=== PATIENT | male | born 1960 | race Caucasian/White ===

== ENCOUNTER → 2021-04-16 | Outpatient (CLI) | payer OTHER | LOC: RAD 12:45 | DX: Z13.6 Encounter for screening for cardiovascular disorders (principal); I25.10 Atherosclerotic heart disease of native coronary artery without angina pectoris; E78.00 Pure hypercholesterolemia, unspecified ==

== ENCOUNTER → 2021-05-10 | Outpatient (CLI) | payer BC ==
[~2021-05-10] VITALS: Ht 185.4 cm; Wt 110.0 kg
[2021-05-10 07:19] VITALS: BP 100/74
--- NOTE | 2021-05-10 09:23 | TEE ---
[facility] [place] [address] TRANSESOPHAGEAL ECHOCARDIOGRAM Name: YUDELKA LINDER [facility]: [id number] Admission: 05/10/21 Attend Phys: Ignacio Bernabe MD, Discharge: Date of : 58 Report #: [id number] THIS REPORT FOR: cc: NO FAMILY PHYSICIAN or PCP NO FAMILY PHYSICIAN or PCP Ignacio Bernabe MD [facility] ~ APPROVED REPORT Study performed: 05/10/2021 07:50:00 EXAM: Comprehensive 2D, Doppler, and color-flow Echocardiogram Patient Location: Out-Patient Room #: 9 Status: routine BSA: 2.35 HR: 82 bpm BP: 134/86 mmHg Rhythm: Atrial Fibrillation Other Information Study Quality: Good Indications Atrial Fibrillation Echo Enhancing Agent Indication: Rule out Shunt Agent(s) / Amount(s) Used: Agitated Saline 7 cc Procedure After obtaining informed consent, patient underwent transesophageal echo in the [employer]. Type of Sedation : Conscious Sedation Sedation was administered by Nurse. Sedation start time: 0800 Case end Time: 812 Sedation was achieved intravenously with: Versed (7mg) Fentanyl (75mcg) Transesophageal probe was inserted and advanced into esophagus without difficulty by Ignacio Bernabe MD. Echo enhancement indication: R/O Septal defect. Echo enhancement agent administered: Agitated Saline The RONALD was performed without complications. Synchronized Cardioversion acheived with 150 Joules after 1 [facility] [address] [place] [address] TRANSESOPHAGEAL ECHOCARDIOGRAM Name: YUDELKA LINDER Room #: REG CL [facility]#: [id number] Admission: 05/10/21 Attend Phys: Ignacio Bernabe, Discharge: Date of : 58 Report #: [id number] attempt(s). Rhythm following Synchronized Cardioversion: Sinus Bradycardia Throughout the procedure, the blood pressure, pulse oximetry, cardiac rhythm, and rate were monitored. The patient tolerated the procedure without adverse effects. Recovery from conscious sedation was uneventful and vital signs were stable. Left Ventricle The left ventricle is normal size. There is global hypokinesis of the left ventricle. There is normal left ventricular wall thickness. Left ventricular ejection fraction is severely decreased. LVEF is 25%. Right Ventricle The right ventricle is normal size. The right ventricular systolic function is normal. Atria Left atrium is dilated. No thrombus is visualized in the left atrium or appendage. Injection of contrast documented no interatrial shunt. Right atrium is dilated. Aortic Valve The aortic valve is normal in structure. No aortic regurgitation is present. There is no aortic valvular stenosis. Mitral Valve The mitral valve is normal in structure. Mild mitral regurgitation. No evidence of mitral valve stenosis. Tricuspid Valve The tricuspid valve is normal in structure. Mild tricuspid regurgitation. Pulmonic Valve The pulmonary valve is normal in structure. There is no pulmonic valvular regurgitation. Great Vessels The aortic root is normal in size. Pericardium There is no pericardial effusion. <Conclusion> [facility] [address] [place] [address] TRANSESOPHAGEAL ECHOCARDIOGRAM Name: YUDELKA LINDER Room #: REG CL [facility].#: [id number] Admission: 05/10/21 Attend Phys: Ignacio Bernabe, Discharge: Date of : 58 Report #: [id number] Consent was obtained Timeout performed After appropriate sedation esophageal probe was advanced without difficulty Left atrial appendage moderate size, no obvious mass or clot detected Moderate dilated left atrium Right atrium mildly dilated Left ventricle normal in size/wall thickness, global hypokinesis EF -25-30% Mild mitral valve insufficiency/central Tricuspid aortic valve, no valvular dysfunction No evidence of ASD/VSD by color flow/bubble study Aorta no calcification detected The patient was successfully cardioverted to sinus rhythm after 150 J/ biphasic mode Patient tolerated the procedure well Twelve-lead ECG pending <ELECTRONICALLY SIGNED> By: Ignacio Bernabe MD, FACC 05/10/21921 1 1 Ignacio Bernabe MD, FACC /INF
--- NOTE | 2021-05-10 10:23 | EKG ---
[place] [address] [address] [facility] [place] [address] ELECTROCARDIOGRAM REPORT Name: YUDELKA LINDER Room #: REG CLI [facility]#: [id number] Admission: 05/10/21 Attend Phys: Ignacio Bernabe MD, Discharge: Date of : 58 Report #: [id number] [facility] Test Date: 2021-05-10 Test Time: 09:02:51 Pat Name: YUDELKA LINDER Department: Room: Gender: M [employer]: FSCHWALBE : 1960 Requested By: Ignacio Bernabe Order Number: [id number] MD: Ignacio Bernabe Measurements Intervals [place] Rate: 57 P: 30 LA: 149 QRS: -19 QRSD: 91 T: 11 QT: 457 QTc: 445 Interpretive Statements Sinus rhythm Borderline left axis deviation Abnormal R-wave progression, early transition No previous ECG available for comparison Electronically Signed On 05-10-2021 10:23:41 [employer] by Ignacio Bernabe [email or web address] <ELECTRONICALLY SIGNED> By: Ignacio Bernabe MD, [facility] 05/10/21 1023 1 1 Ignacio Bernabe MD, FACC /EPI
== END | disposition home or self-care (01) ==
LOC: CATH 06:32
PROVIDERS: ATTEND Internal Medicine
DX: I48.91 Unspecified atrial fibrillation (principal); I08.1 Rheumatic disorders of both mitral and tricuspid valves; I10 Essential (primary) hypertension; E78.00 Pure hypercholesterolemia, unspecified; I25.10 Atherosclerotic heart disease of native coronary artery without angina pectoris; I42.9 Cardiomyopathy, unspecified; Z98.890 Other specified postprocedural states; Z79.899 Other long term (current) drug therapy; Z86.73 Personal history of transient ischemic attack (TIA), and cerebral infarction without residual deficits; Z79.01 Long term (current) use of anticoagulants; Z86.718 Personal history of other venous thrombosis and embolism

== ENCOUNTER → 2021-06-13 | Outpatient (CLI) | payer BC, OTHER | LOC: SJCVCIMAG 07:47 | PROVIDERS: ATTEND Internal Medicine Cardiovascular Disease | DX: R00.1 Bradycardia, unspecified (principal) ==